=== PATIENT | female | born 1945 | race Caucasian/White ===

== ENCOUNTER 2023-11-13 11:33 | Day surgery (SDC) | payer MEDICARE ==
[2023-11-13] MEDS ORDERED: Decadron 4 MG INJ IV ONE (11:34)
[2023-11-13] MEDS ORDERED: Sodium Chloride 0.9(Preservative Free) 10 ML IJ ONE (11:34)
[2023-11-13] MEDS ORDERED: DIPRIVAN 200 MG/20 ML IV ONE (13:26)
--- NOTE | 2023-11-13 14:35 | XRAY ---
Indication: Right L4-S1 transforaminal JAMISON. Intraoperative fluoroscopy provided for 31 seconds. 7 digital spot images submitted for interpretation demonstrates posterior needle tips projecting over the expected right L4 and L5 nerve roots. Small amount of contrast injected for needle tip placement. Correlate with intraoperative findings/report.
--- NOTE | 2023-11-13 15:07 | XRAY ---
31 seconds of fluoroscopy was used in surgery for a right L4-S1 transforaminal JAMISON.
[2023-11-13] MEDS ORDERED: Lactated Ringers 1,000 ML IV ONE (15:35)
== END 2023-11-13 13:58 | disposition home or self-care (01) ==
LOC: SDC-PAIN 11:33
PROVIDERS: ATTEND Psychiatry & Neurology Pain Medicine
DX: M54.16 Radiculopathy, lumbar region (principal)
CPT/HCPCS: 64483; 64484; 72100; 77003; J1100; J2704; Q9966

== ENCOUNTER 2024-03-21 11:40 | Emergency (ER) | payer MEDICARE ==
[2024-03-21 12:02] VITALS: RESP 17; TEMP 97.7; O2SAT 98
--- NOTE | 2024-03-21 12:13 | ERPHSYRPT ---
- History of Present Illness Time Seen by Provider: 03/21/24 12:11 Source: patient, family Exam Limitations: no limitations Patient Subjective Stated Complaint: C/O head injury following a fall today at approx 09:50 today. States she caught her right toe/foot on the edge of a step and fell hitting her head on the concrete. Denies loss of conciousness. Triage Nursing Assessment: Patient brought back to ER in a W/C. Patient transferred from W/C to bed with stand by assistance. She is alert and oriented. Dried blood noted in hair (back right side of head). A laceration is present; 1.4cm. Physician History: C/O head injury following a fall today at approx 09:50 today. States she caught her right toe/foot on the edge of a step and fell hitting her head on the concrete. Denies loss of consciousness. (back right side of head). A laceration is present; 1.4cm. Occurred: just prior to arrival Reason for Fall: tripped Injuries/Pain Location: head Loss of Consciousness: no loss of consciousness Severity of Pain-Max: mild Severity of Pain-Current: mild Modifying Factors: Improves With: nothing Associated Symptoms (Fall): denies symptoms Allergies/Adverse Reactions: Sulfa (Sulfonamide Antibiotics) Allergy (Verified 03/21/24 11:46) Home Medications: Atenolol 50 mg [Tenormin 50 mg] 50 mg PO DAILY 03/21/24 [History] Duloxetine HCl [Cymbalta] 60 mg PO DAILY 03/21/24 [History] Hydrochlorothiazide 25 mg [hydroDIURIL 25 MG] 25 mg PO DAILY 03/21/24 [History] Omeprazole Magnesium [Acid Patient Companion] 20 mg PO DAILY 03/21/24 [History] Simvastatin [Zocor] 40 mg PO DAILY 03/21/24 [History] lamoTRIgine [Lamotrigine] 200 mg PO BID 03/21/24 [History] oxyBUTYnin chloride [Oxybutynin Chloride] 5 mg PO BID 03/21/24 [History] Hx Tetanus, Diphtheria Vaccination/Date Given: Yes Hx Influenza Vaccination/Date Given: Yes Immunizations Up to Date: Yes Travel Risk - International Travel Have you traveled outside of the country in past 3 weeks: No - Emerging Infectious Disease Are you exhibiting symptoms associated with any current EIDs: No - Review of Systems Constitutional: No Fever, No Chills Eyes: No Symptoms Ears, Nose, & Throat: No Symptoms Respiratory: No Cough, No Dyspnea Cardiac: No Chest Pain, No Edema, No Syncope Abdominal/Gastrointestinal: No Abdominal Pain, No Nausea, No Vomiting, No Diarrhea Genitourinary Symptoms: No Dysuria Musculoskeletal: Fall, No Back Pain, No Neck Pain Skin: No Rash Neurological: No Dizziness, No Focal Weakness, No Sensory Changes Psychological: No Symptoms Endocrine: No Symptoms All Other Systems: Reviewed and Negative - Past Medical History Pertinent Past Medical History: Yes Neurological History: Seizures Cardiac History: High Cholesterol, Hypertension GI Medical History: GERD Psycho-Social History: Depression 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 - Past Surgical History Past Surgical History: No - Social History Smoking Status: Never smoker Exposure to second hand smoke: No Drug Use: other - Nursing Vital Signs Nursing Vital Signs: Initial Vital Signs Temperature 97.7 F 03/21/24 11:41 Pulse Rate 60 03/21/24 11:41 Respiratory Rate 17 03/21/24 11:41 Blood Pressure 194/83 03/21/24 11:41 O2 Sat by Pulse Oximetry 98 03/21/24 11:41 Pain Scale Pain Intensity 2 - Johan Coma Score Best Eye Response (Johan): (4) open spontaneously Best Verbal Response (Johan): (5) oriented Best Motor Response (Sagle): (6) obeys commands Johan Total: 15 - Physical Exam General Appearance: no apparent distress, alert Head Injury: no evidence of injury, lacerations Eye Exam: PERRL/EOMI ENT Exam: airway nml Neck Exam: normal inspection, No tenderness Respiratory/Chest Exam: normal breath sounds, No chest tenderness, No respiratory distress Cardiovascular Exam: normal heart sounds, regular rate/rhythm Gastrointestinal Exam: soft, No tenderness, No distention, No guarding, No ecchymosis Back Exam: normal inspection, No vertebral tenderness Extremity Exam: normal inspection, normal range of motion, pelvis stable, No deformities Neurologic Exam: alert, oriented x 3, cooperative, sensation nml, No motor deficits Skin Exam: normal color, warm, dry SpO2: 98 - Course Nursing assessment & vital signs reviewed: Yes - CT Exams Head CT Interpretation: Tele-radiologist Report, No/Intracranial Hemorrhag Ordered Tests: Active Orders 24 hr Category Date Time Status HEAD WITHOUT CONTRAST [CT] Stat Exams 03/21/24 11:46 Completed - Progress Progress: improved Counseled pt/family regarding: diagnosis, need for follow-up, rad results Medical Desision Making - Independent Historian Additional History obtained from: Family - Diagnostic Testing Diagnostic test were ordered, analyzed, and reviewed by me: Yes Radiological Interpretation: Interpreted by me, Reviewed by me, Teleradiologist Report - Risk of complications Minimal Risk: Minimal risk of morbidity - Departure Departure Disposition: Home Clinical Impression: Fall (on) (from) other stairs and steps, initial encounter Head injury without concussion or intracranial hemorrhage Qualifiers: Encounter type: initial encounter Qualified Code(s): S09.90XA - Unspecified injury of head, initial encounter Occipital scalp laceration Qualifiers: Encounter type: initial encounter Qualified Code(s): S01.01XA - Laceration without foreign body of scalp, initial encounter Condition: Stable Critical Care Time: No Referrals: LIDA NULL [Primary Care Provider] - Follow up/PCP as directed Instructions: Preventing falls in adults, Contusion (DC), Head Injury in Adults (DC), Minor Head Injury (DC), Postconcussion Syndrome (DC) Additional Instructions: Discharge/Care Plan ADAM COMBS was seen on 03/21/24 in the Emergency Room. The patient was counseled regarding Diagnosis,Lab results, Imaging studies, need for follow up and when to return to the Emergency Room. Prescriptions given: Discharge Note I have spoken with the patient and/or caregivers. I have explained the patient's condition, diagnosis and treatment plan based on the information available to me at this time. I have answered the patient's and/or caregiver's questions and addressed any concerns. The patient and/or caregivers have as good understanding of the patient's diagnosis, condition and treatment plan as can be expected at this point. The vital signs have been stable. The patient's condition is stable and appropriate for discharge from the emergency department. The patient will pursue further outpatient evaluation with the primary care physician or other designated or consulting physician as outlined in the discharge instructions. The patient and/or caregivers are agreeable to this plan of care and follow-up instructions have been explained in detail. The patient and/or caregivers have received these instruction. The patient/and or caregivers are aware that any significant change in condition or worsening of symptoms should prompt an immediate return to this or the closest emergency department or call 911. ADAM COMBS was seen on 03/21/24 n the Emergency Room. At that time you were treated for an emergent condition, during your visit Laboratory, Radiology and/or other procedures may have been ordered. It is very important that you follow-up with your Primary Care Physician LIDA NULL within the next 24-48 hours to review your Emergency Room visit and the final results of testing that was ordered. Some test results such as Urine Cultures, Blood Cultures, and other cultures if ordered will not be finalized for 24-48 hours. If you do not have a Primary Care Provider please call the medical records department at [phone] ext [phone] to obtain a copy of your results or you may sign into our patient portal to obtain these results by visiting us @ [email or web address] and completing the following steps: 1. Click on the Patient Portal link 2. Click the Patient Self Enrollment Link to complete the enrollment form and entering your 3. Once the enrollment form is completed you will receive an email with a temporary ID and password at the email address you provided. 4. Next choose a user name and password. Your user name must be at least 4 characters long and your password must be at least 4 characters long. 5. Choose a security question from the list and provide your answer to the question. If you already have signed into the Health Portal you may access your Health Care Information 24/06 by the following steps: 1. Login to our website @ [email or web address] 2. Enter your original user name and password. FAQS The [facility] Health Portal is an online tool that contains your Lab Results, Radiology Reports, Visit History, Discharge Instructions and Health Summary Lab and Radiology Results will not be available for 72 hours on the portal. The Portal is a secure site, passwords are encryted and URLs are re-written so they cannot be copied and pasted. You and authorized family members are the only ones who can access your Portal. Also there is a timeout feature that protects your information if you leave the Portal page open. If you have technical difficulty please use the Contact Us link on the page this will allow you to submit any questions you have regarding the Portal or you may contact the Medical Record Department at [phone] ext [phone].
[2024-03-21 12:17] VITALS: BP 160/77; PULSE 53
--- NOTE | 2024-03-21 12:46 | XRAY ---
CLINICAL HISTORY: Fall and hit head COMPARISON: None. TECHNIQUE: Axial non-contrast CT scan of the brain was performed from the skull base to the high parietal region with multiplanar reconstructions. One of the following dose reduction techniques was utilized for this exam: Automated exposure control, adjustment of the mA and/or kV according to patient size, and use of iterative reconstruction. FINDINGS: No intracerebral or extra axial hematoma. Significant scalp hematoma is seen in the right parietal region. No definite calvarium fractures. No established territorial ischemic infarction is seen. No obvious space-occupying lesions are seen. Age matched central and cortical involutional brain changes as evident by prominent cortical sulci, widened basal cisterns and mild ventricular dilatation. Deep white matter chronic ischemia as evident by exaggerated white matter hypodensity. No focal parenchymal abnormalities are demonstrated. Rutherford-white matter differentiation is maintained. No midline shifts or deformity. Normal CT appearance of the posterior fossa structures namely the cerebellar hemispheres, brainstem and cerebellar peduncles. Mucous retention cysts seen in the right maxillary sinus. IMPRESSION: 1. No intracerebral or extra axial hematoma. 2. Significant scalp hematoma is seen in the right parietal region. 3. No definite calvarium fractures. 4. No established territorial ischemic infarction seen. 5. Age matched involutional brain changes and deep white matter chronic microvascular ischemia. Electronically Signed by: Donna Kamara MD. (03/21/2024 12:41:20 EDT)
== END 2024-03-21 13:24 | disposition home or self-care (01) ==
LOC: ED 11:40
DX: S01.01XA Laceration without foreign body of scalp, initial encounter (principal); S09.90XA Unspecified injury of head, initial encounter; W10.9XXA Fall (on) (from) unspecified stairs and steps, initial encounter; E78.5 Hyperlipidemia, unspecified; I10 Essential (primary) hypertension; Z79.899 Other long term (current) drug therapy
CPT/HCPCS: 70450; 99283

== ENCOUNTER 2024-05-06 10:08 | Day surgery (SDC) | payer MEDICARE ==
[2024-05-06] MEDS ORDERED: BUPIVACAINE 0.5% VIAL IJ ONE (10:09)
[2024-05-06] MEDS ORDERED: LIDOCAINE HCL 1% 50 MG/5 ML VL PF IJ ONE (10:09)
[2024-05-06] MEDS ORDERED: Depo-Medrol 40 MG/ML IM ONE (10:09)
--- NOTE | 2024-05-06 14:29 | XRAY ---
Indication: Right knee injection. Intraoperative fluoroscopy provided for 9 seconds. Single digital spot images submitted for interpretation demonstrates needle tip projecting over right femur intercondylar notch. Small amount of contrast injected for needle tip placement. Correlate with intraoperative findings/report.
--- NOTE | 2024-05-06 14:57 | XRAY ---
9 seconds of fluoroscopy was used in surgery for a right intra-articular knee injection.
== END 2024-05-06 12:20 | disposition home or self-care (01) ==
LOC: SDC-PAIN 10:08
PROVIDERS: ATTEND Psychiatry & Neurology Pain Medicine
DX: M17.11 Unilateral primary osteoarthritis, right knee (principal)
CPT/HCPCS: 20553; 20610; 73560; 77002; J1010; J2001; Q9966

== ENCOUNTER 2024-09-23 12:09 | Day surgery (SDC) | payer MEDICARE ==
[2024-09-23] MEDS ORDERED: Decadron 4 MG INJ IV ONE (12:10)
[2024-09-23] MEDS ORDERED: Sodium Chloride 0.9(Preservative Free) 10 ML IJ ONE (12:10)
[2024-09-23] MEDS ORDERED: DIPRIVAN 200 MG/20 ML IV ONE (14:18)
--- NOTE | 2024-09-23 16:37 | XRAY ---
Indication: Right L4-S1 transforaminal JAMISON. Intraoperative fluoroscopy provided for 32 seconds. 5 digital spot image submitted for interpretation demonstrates posterior needle tips projecting over the expected right L4 and L5 nerve roots. Small amount of contrast injected for needle tip placement. Correlate with intraoperative findings/report.
--- NOTE | 2024-09-23 16:43 | XRAY ---
32 seconds of fluoroscopy was used in surgery for a right L4-S1 transforaminal JAMISON.
== END 2024-09-23 14:55 | disposition home or self-care (01) ==
LOC: SDC-PAIN 12:09
PROVIDERS: ATTEND Psychiatry & Neurology Pain Medicine
DX: M54.16 Radiculopathy, lumbar region (principal)
CPT/HCPCS: 64483; 64484; 72100; 77003; J1100; J2704; Q9966

== ENCOUNTER 2024-11-12 11:28 | Day surgery (SDC) | payer MEDICARE ==
[2024-11-12] MEDS ORDERED: Depo-Medrol 40 MG/ML IM ONE (11:29)
[2024-11-12] MEDS ORDERED: BUPIVACAINE 0.5% VIAL IJ ONE (11:29)
[2024-11-12] MEDS ORDERED: DIPRIVAN 200 MG/20 ML IV ONE (13:05)
--- NOTE | 2024-11-12 13:57 | XRAY ---
Indication: Right knee and pes anserine injection. Intraoperative fluoroscopy provided for 6 seconds. Single digital spot image submitted for interpretation demonstrates needle tip projecting over right femur intercondylar notch. Small amount of contrast injected for needle tip placement. Correlate with intraoperative findings/report.
--- NOTE | 2024-11-12 14:45 | XRAY ---
6 seconds of fluoroscopy was used in surgery for a right intra-articular knee and pes anserine bursa injection.
== END 2024-11-12 13:35 | disposition home or self-care (01) ==
LOC: SDC-PAIN 11:28
PROVIDERS: ATTEND Psychiatry & Neurology Pain Medicine
DX: M17.11 Unilateral primary osteoarthritis, right knee (principal); M70.51 Other bursitis of knee, right knee
CPT/HCPCS: 20610; 73560; 77002; J2704; Q9966

== ENCOUNTER 2025-04-07 10:28 | Day surgery (SDC) | payer MEDICARE ==
[2025-04-07] MEDS ORDERED: LIDOCAINE HCL 2% 100 MG/5 ML IJ ONE (10:29)
[2025-04-07] MEDS ORDERED: methylPREDNISolone acetate IM ONE (10:29)
[2025-04-07] MEDS ORDERED: propofoL IV ONE (12:46)
--- NOTE | 2025-04-07 14:33 | XRAY ---
Indication: Bilateral L4-S1 MBB. Intraoperative fluoroscopy provided for 10 seconds. Single digital spot images submitted for interpretation demonstrates posterior needle tips projecting over expected left and right L4-S1 nerve roots. Correlate with intraoperative findings/report.
[2025-04-07] MEDS ORDERED: Lactated Ringers 1,000 ML IV ONE (14:36)
--- NOTE | 2025-04-07 15:01 | XRAY ---
10 seconds of fluoroscopy used in surgery for a bilateral L4-S1 MBB.
== END 2025-04-07 13:41 | disposition home or self-care (01) ==
LOC: SDC-PAIN 10:28
PROVIDERS: ATTEND Psychiatry & Neurology Pain Medicine
DX: M47.817 Spondylosis without myelopathy or radiculopathy, lumbosacral region (principal)
CPT/HCPCS: 64493; 64494; 72020; J1010; J2704

== ENCOUNTER 2025-06-23 09:15 | Day surgery (SDC) | payer MEDICARE ==
[2025-06-23] MEDS ORDERED: LIDOCAINE HCL 1% 50 MG/5 ML VL IJ ONE (09:16)
[2025-06-23] MEDS ORDERED: Depo-Medrol 40 MG/ML IM ONE (09:16)
[2025-06-23] MEDS ORDERED: BUPIVACAINE 0.5% VIAL IJ ONE (09:16)
[2025-06-23] MEDS ORDERED: propofoL IV ONE (11:35)
[2025-06-23] MEDS ORDERED: Lactated Ringers 1,000 ML IV ONE (13:11)
--- NOTE | 2025-06-23 13:40 | XRAY ---
Indication: Right knee and pes anserine injection. Intraoperative fluoroscopy provided for 9 seconds. Single digital spot image submitted for interpretation demonstrates needle tip projecting over right femur intercondylar notch. Small amount of contrast injected for needle tip placement. Correlate with intraoperative findings/report.
--- NOTE | 2025-06-23 14:08 | XRAY ---
9 seconds of fluoroscopy was used in surgery for a right intra-articular knee and pes anserine bursa injection.
== END 2025-06-23 12:00 | disposition home or self-care (01) ==
LOC: SDC-PAIN 09:15
PROVIDERS: ATTEND Psychiatry & Neurology Pain Medicine
DX: M17.11 Unilateral primary osteoarthritis, right knee (principal); M70.51 Other bursitis of knee, right knee